=== PATIENT | female | born 1970 | race Caucasian/White ===

== ENCOUNTER 2022-01-17 12:12 | Emergency (ER) | payer MEDICARE, OTHER ==
[~2022-01-17 12:12] MED LIST: ADULT ASPIRIN R81 MG PO; CIPRO500 M1 PO; CLEOCIN300 MG PO; NEURONTIN300 MG PO; VICODIN 10/3251 EACH PO
[2022-01-17 13:25] LABS: BASOPHIL 0.6 % (0-2); EOSINOPHIL 1.1 % (0-5); HCT 43.8 % (37.0-47.0); HGB 14.8 g/dl (12.5-16.0); LYMPHOCYTE 3.6 % (15-48); MCH 27.9 pg (25.0-31.0); MCHC 33.8 g/dL (32.0-36.0); MCV 82.5 fL (78.0-100.0); MONOCYTE 1.5 % (0-12); MPV 9.6 fL (6.0-9.5); NEUTROPHIL 92.9 % (41-80); NRBC 0; PLT 309 K/uL (150-400); RBC 5.31 M/uL (4.20-5.40); WBC 11.9 K/uL (4.0-10.5)
[2022-01-17 13:37] LABS: BILIRUBIN NEGATIVE (NEGATIVE); BLOOD 3+ Ery/uL (NEGATIVE); COLOR YELLOW (YELLOW); GLUCOSE (U) NORMAL (NORMAL); LEUKOCYTES 3+ Leu/uL (NEGATIVE); NITRITE POSITIVE (NEGATIVE); PROTEIN 2+ mg/dL (NEGATIVE); SPECIFIC GRAVITY 1.025 (1.001-1.030); UROBILINOGEN 0.2 mg/dL (0.2-1.0)
[2022-01-17 13:38] LABS: CLARITY CLOUDY (CLEAR)
[2022-01-17 13:38] LABS: ALBUMIN 3.3 g/dL (3.4-5.0); BILIRUBIN - TOTAL 0.6 mg/dL (0.2-1.0); CREATININE 0.8 mg/dL (0.51-0.95); GLOBULIN (CALCULATION) 3.7 g/dL; POTASSIUM 3.5 mmol/L (3.5-5.1)
[2022-01-17 13:44] LABS: BACTERIA 4+; URINARY WBC 20-50
[2022-01-17] MEDS ORDERED: KEFLEX250 MG PO (13:49)
== END 2022-01-17 15:17 | disposition home or self-care (01) ==
LOC: FER 12:12
PROVIDERS: Emergency Medicine
DX: N39.0 Urinary tract infection, site not specified (principal)
CPT/HCPCS: 36415; 80053; 81001; 85025; 87076; 87088; 87186; J0696; J1885; J2405; J7030

== ENCOUNTER 2022-01-30 05:16 | Inpatient (IN) | payer MEDICARE, OTHER ==
[~2022-01-30] VITALS: Ht 160 cm; Wt 75.3 kg
[~2022-01-30 05:16] MED LIST changes: +KEFLEX250 MG PO
[2022-01-30 05:42] LABS: BASOPHIL 0.8 % (0-2); EOSINOPHIL 0.7 % (0-5); HCT 36.6 % (37.0-47.0); HGB 12.5 g/dl (12.5-16.0); LYMPHOCYTE 5.4 % (15-48); MCH 27.8 pg (25.0-31.0); MCHC 34.2 g/dL (32.0-36.0); MCV 81.3 fL (78.0-100.0); MPV 9.5 fL (6.0-9.5); NEUTROPHIL 86.7 % (41-80); NRBC 0; PLT 325 K/uL (150-400); RDW 12.5 % (11.5-14.0); WBC 8.5 K/uL (4.0-10.5)
[2022-01-30 06:01] LABS: ALBUMIN 2.9 g/dL (3.4-5.0); BILIRUBIN - TOTAL 0.8 mg/dL (0.2-1.0); BUN/CREAT RATIO (CALC) 12.5 RATIO; CREATININE 1.44 mg/dL (0.51-0.95); GLOBULIN (CALCULATION) 4.2 g/dL; POTASSIUM 2.5 mmol/L (3.5-5.1); TOTAL PROTEIN 7.1 g/dL (6.4-8.2)
[2022-01-30 06:13] LABS: LACTIC ACID 0.8 mmol/L (0.4-1.9)
[2022-01-30 08:23] LABS: PROTEIN 2+ mg/dL (NEGATIVE); SPECIFIC GRAVITY 1.015 (1.001-1.030)
[2022-01-30 08:24] LABS: BLOOD 1+ Ery/uL (NEGATIVE); CLARITY CLOUDY (CLEAR); COLOR YELLOW (YELLOW); GLUCOSE (U) NORMAL (NORMAL); LEUKOCYTES 3+ Leu/uL (NEGATIVE); NITRITE NEGATIVE (NEGATIVE); UROBILINOGEN 0.2 mg/dL (0.2-1.0)
[2022-01-30 08:25] LABS: URINARY WBC TNTC
[2022-01-30 08:26] LABS: AMORPHOUS URATES CRYSTALS MODERATE; BACTERIA 2+; MUCOUS MODERATE; URINARY RBC RARE
[2022-01-30] MEDS ORDERED: VITAMIN D31250 MC1 PO (12:33)
[2022-01-30] MEDS ORDERED: ADVIL200 M1 PO (12:34)
[2022-01-30] MEDS ORDERED: ZYRTEC10 MG PO (12:34)
[2022-01-30] MEDS ORDERED: EPIDIOLEX100 MG/1 M PO (12:37)
[2022-01-30 17:33] LABS: BUN/CREAT RATIO (CALC) 13.6 RATIO; CREATININE 1.4 mg/dL (0.51-0.95); POTASSIUM 2.5 mmol/L (3.5-5.1)
[2022-01-31 06:11] LABS: BASOPHIL 1.6 % (0-2); EOSINOPHIL 3.7 % (0-5); HCT 31.6 % (37.0-47.0); HGB 10.5 g/dl (12.5-16.0); LYMPHOCYTE 20.2 % (15-48); MCH 27.6 pg (25.0-31.0); MCHC 33.2 g/dL (32.0-36.0); MCV 82.9 fL (78.0-100.0); NRBC 0; PLT 295 K/uL (150-400); RBC 3.81 M/uL (4.20-5.40); RDW 12.6 % (11.5-14.0); WBC 3.8 K/uL (4.0-10.5)
[2022-01-31 06:22] LABS: BUN/CREAT RATIO (CALC) 14.3 RATIO; CREATININE 1.19 mg/dL (0.51-0.95); MAGNESIUM 2.5 mg/dL (1.8-2.4)
[2022-02-01 06:24] LABS: BUN/CREAT RATIO (CALC) 14.9 RATIO; CREATININE 0.87 mg/dL (0.51-0.95); POTASSIUM 2.7 mmol/L (3.5-5.1)
[2022-02-01 06:26] LABS: MAGNESIUM 1.5 mg/dL (1.8-2.4)
--- NOTE | 2022-02-01 08:08 | NUR ---
CARE COORDINATION: PATIENT USES [facility] FOR [facility]. LIVES WITH SPOUSE BROOKS. REQUESTED [facility] FOR HOME HEALTH NEEDS. EMELI MCKEON RN WILL CALL FOR REFERAL.
[2022-02-01] MEDS ORDERED: FLOMAX0.4 MG PO (09:00)
[2022-02-01] MEDS ORDERED: BACTRIM DS TAB1 EACH PO (09:00)
--- NOTE | 2022-02-01 14:31 | NUR ---
BLADDER SCAN DONE, [id number], ORDER TO REPLACE AN. #18 FR PLACED WITH IMMEDIATE RETURN OF URINE. ANCHORED TO BSD
== END 2022-02-01 16:03 | disposition home health service (06) | DRG 683 ==
LOC: FER 05:16 → FMS 09:06
PROVIDERS: Allergy & Immunology Allergy; Internal Medicine; Nurse Practitioner Acute Care; ADMIT Family Medicine
PROC: 0T9B70Z Drainage of Bladder with Drainage Device, Via Natural or Artificial Opening (ICD-10-PCS; principal; 2022-01-30)
DX: N17.9 Acute kidney failure, unspecified (principal); Z16.12 Extended spectrum beta lactamase (ESBL) resistance; N13.6 Pyonephrosis; E87.6 Hypokalemia; R33.9 Retention of urine, unspecified; G35 Multiple sclerosis; N18.2 Chronic kidney disease, stage 2 (mild); Z74.01 Bed confinement status; B96.20 Unspecified Escherichia coli [E. coli] as the cause of diseases classified elsewhere
CPT/HCPCS: 36415; 71250; 80048; 80053; 81001; 83605; 83735; 84145; 85025; 87040; 87076; 87088; 87186; 94010; 96365; 96366; 96367; 96375; J0696; J1170; J1650; J2405; J2543; J3475; J3480; J7030; J7050